=== PATIENT | female | born 1980 | race American Indian/Alaskan Native ===

== ENCOUNTER 2021-09-16 12:14 | Emergency (ER) | payer MEDICAID, OTHER ==
[2021-09-16 12:29] VITALS: BP 154/108
[2021-09-16] MEDS ORDERED: CYCLOBENZAPRINE 10 MG TAB PO ONE (12:32)
[2021-09-16] MEDS ORDERED: predniSONE 20 MG TAB PO ONE (12:32)
[2021-09-16] MEDS ORDERED: KETOROLAC 60 MG/2 ML INJ IM ONE (12:32)
--- NOTE | 2021-09-16 13:26 | Emergency Department Report ---
ED Back Pain/Injury HPI - General Chief Complaint: Back Pain/Injury Stated Complaint: BACK PAIN Time Seen by Provider: 09/16/21 12:28 Source: patient Limitations: No Limitations - History of Present Illness Initial Comments: This is a 40-year-old female nontoxic, well nourished in appearance, no acute signs of distress presents to the ED with c/o of lower back pain x several days. Patient stated that she was heavy lifting and developed this pain. Patient denies any radiation of pain. Patient denies any injuries or trauma. Denies any bladder or bowel instability. Patient denies any urinary symptoms. Denies any fever, chills, nausea, vomiting, headache, stiff neck, chest pain or shortness of breath. Patient denies any numbness or tingling. Denies any allergies. Denies significant past medical history. MD Complaint: back pain -: days(s) Similar Symptoms Previously: Yes Place: home Radiation: none Severity: mild Severity scale (0 -10): 3 Quality: aching Consistency: intermittent Improves With: immobilization, sitting upright Worsens With: movement, walking Context: while lifting, turning/twisting Associated Symptoms: denies other symptoms. denies: confusion, weakness, chest pain, numbness, difficulty walking, cough, difficulty urinating, diaphoresis, incontinence, fever/chills, constipation, headaches, abdominal pain, loss of a ppetite, malaise, nausea/vomiting, rash, seizure, shortness of breath, syncope - Related Data Home Medications Medication Instructions Recorded Confirmed Last Taken Verapamil HCl [Verapamil ER PM] 180 mg PO DAILY 01/17/15 06/26/16 01/18/15 09:00 Imitrex tab PO QID PRN 06/26/16 Unknown Previous Rx's Medication Instructions Recorded Last Taken Type Cyclobenzaprine [Flexeril] 10 mg PO QHS PRN #10 tablet 09/16/21 Unknown Rx Naproxen 500 mg PO Q12H PRN #12 tablet 09/16/21 Unknown Rx Allergies Allergy/AdvReac Type Severity Reaction Status Date / Time No Known Allergies Allergy Unverified 01/17/15 15:18 ED Review of Systems ROS: Stated complaint: BACK PAIN Other details as noted in HPI Comment: All other systems reviewed and negative Constitutional: denies: chills, fever Eyes: denies: eye pain, eye discharge, vision change ENT: denies: ear pain, throat pain Respiratory: denies: cough, shortness of breath, wheezing Cardiovascular: denies: chest pain, palpitations Endocrine: no symptoms reported Gastrointestinal: denies: abdominal pain, nausea, diarrhea Genitourinary: denies: urgency, dysuria, discharge Musculoskeletal: back pain. denies: joint swelling, arthralgia Skin: denies: rash, lesions Neurological: denies: headache, weakness, paresthesias Psychiatric: denies: anxiety, depression Hematological/Lymphatic: denies: easy bleeding, easy bruising ED Past Medical Hx - Past Medical History Previous Medical History?: Yes Hx Hypertension: Yes (Takes Verapamil for headaches) Hx Headaches / Migraines: Yes (CLUSTER) Hx Asthma: No Hx COPD: No - Surgical History Past Surgical History?: Yes Additional Surgical History: leep - Social History Smoking Status: Current Every Day Smoker Substance Use Type: None - Medications Home Medications: Home Medications Medication Instructions Recorded Confirmed Last Taken Type Verapamil HCl [Verapamil ER PM] 180 mg PO DAILY 01/17/15 06/26/16 01/18/15 09:00 History Imitrex tab PO QID PRN 06/26/16 Unknown History Cyclobenzaprine [Flexeril] 10 mg PO QHS PRN #10 tablet 09/16/21 Unknown Rx Naproxen 500 mg PO Q12H PRN #12 tablet 09/16/21 Unknown Rx ED Physical Exam - General Limitations: No Limitations General appearance: alert, in no apparent distress - Head Head exam: Present: atraumatic, normocephalic - Eye Eye exam: Present: normal appearance - Neck Neck exam: Present: normal inspection, full ROM. Absent: lymphadenopathy - Respiratory Respiratory exam: Absent: respiratory distress - Cardiovascular Cardiovascular Exam: Present: regular rate - GI/Abdominal GI/Abdominal exam: Present: soft, normal bowel sounds. Absent: distended, tenderness, guarding, rebound, rigid, diminished bowel sounds, mass, bruit, pulsatile mass - Extremities Exam Extremities exam: Present: normal inspection, full ROM. Absent: tenderness - Back Exam Back exam: Present: normal inspection, full ROM, paraspinal tenderness. Absent: tenderness, CVA tenderness (R), CVA tenderness (L), muscle spasm, vertebral tenderness, rash noted - Expanded Back Exam Expanded Back exam: Absent: saddle anesthesia Back exam: Negative Straight Leg Raising: Left, Right 1 - pain here - Neurological Exam Neurological exam: Present: alert, oriented X3, normal gait - Psychiatric Psychiatric exam: Present: normal affect, normal mood - Skin Skin exam: Present: warm, dry, intact, normal color. Absent: rash ED Course Vital Signs 09/16/21 09/16/21 12:25 13:41 Temperature 97.8 F Pulse Rate 98 H Respiratory 16 16 Rate Blood Pressure 154/108 [Left] O2 Sat by Pulse 98 Oximetry - Reevaluation(s) Reevaluation #1: 09/16/21 13:26 Patient is speaking in full sentences with no signs of distress noted. ED Medical Decision Making - Lab Data Lab Results 09/16/21 Range/Units 14:28 Urine Color Yellow (Yellow) Urine Turbidity Slightly-cloudy (Clear) Urine pH 5.0 (5.0-7.0) Ur Specific [place] 1.023 (1.003-1.030) Urine Protein 30 mg/dl (Negative) mg/dL Urine Glucose (UA) Neg (Negative) mg/dL Urine Ketones Neg (Negative) mg/dL Urine Blood Neg (Negative) Urine Nitrite Neg (Negative) Urine Bilirubin Neg (Negative) Urine Urobilinogen 2.0 (<2.0) mg/dL Ur Leukocyte Esterase Neg (Negative) Urine WBC (Auto) 3.0 (0.0-6.0) /HPF Urine RBC (Auto) 4.0 (0.0-6.0) /HPF U Epithel Cells (Auto) 3.0 (0-13.0) /HPF Urine Bacteria (Auto) 2+ (Negative) /HPF Urine Mucus 3+ /HPF Urine HCG, Qual Negative (Negative) - Medical Decision Making This is a 40-year-old female that presents with low back strain. Patient is stable was examined by me. There is no spinal tenderness. There is no cauda equina syndrome during examination. No bladder or bowel instability. Patient received Toradol 60 mg IM, flexeril and prednisone in the ED which stated that his symptoms has resolved and subsided. Patient stated family member will drive patient home after discharge due to possible drowsiness of Flexeril. Patient is notified of the UA results with no questions noted by the patient. Patient is discharged with muscle relaxant and Motrin. Patient was instructed not to operate any machinery while taking muscle relaxant as they cause her drowsiness. Patient was referred to Follow-up with a primary care doctor in 3-5 days or if symptoms worsen and continue return to emergency room as soon as possible. At time of discharge, the patient does not seem toxic or ill in appearance. No acu te signs of distress noted. Patient agrees to discharge treatment plan of care. No further questions noted by the patient. Critical care attestation.: If time is entered above; I have spent that time in minutes in the direct care of this critically ill patient, excluding procedure time. ED Disposition Clinical Impression: Low back strain Qualifiers: Encounter type: initial encounter Qualified Code(s): S39.012A - Strain of muscle, fascia and tendon of lower back, initial encounter Disposition: HOME / SELF CARE / HOMELESS Is pt being admited?: No Does the pt Need Aspirin: No Condition: Stable Instructions: Lumbosacral Strain, Cyclobenzaprine tablets Additional Instructions: Follow-up with your primary care doctor in 3-5 days or if symptoms worsen such as bladder or bowel stability, chest pain, short of breath, numbness or tingling sensation in extremities, headache, dizziness, visual changes, nausea vomiting, or abdominal pain, return back to emergency room as was possible. Take naproxen and Flexeril as prescribed. Do not operate heavy machinery while taking Flexeril due to sedation Prescriptions: Cyclobenzaprine [Flexeril] 10 mg PO QHS PRN #10 tablet PRN Reason: Muscle Spasm Naproxen 500 mg PO Q12H PRN #12 tablet PRN Reason: Pain , Severe (7-10) Referrals: PRIMARY CAREMD [Referring] - 3-5 Days DALJIT OLIVAREZ MD [Staff Physician] - 3-5 Days Forms: Work/School Release Form(ED) Time of Disposition: 15:33
[2021-09-16 15:18] LABS: Bacteria,Urine 2+ /HPF (Negative); Bilirubin,Urine NEG (Negative); Blood,Urine NEG (Negative); Color,Urine Yellow (Yellow); Mucus,Urine 3+ /HPF
[2021-09-16 15:20] LABS: HCG Qualitative,Urine Negative (Negative)
== END 2021-09-16 15:47 | disposition home or self-care (01) ==
LOC: ED 12:14
DX: S39.012A Strain of muscle, fascia and tendon of lower back, initial encounter (principal); I10 Essential (primary) hypertension; F17.200 Nicotine dependence, unspecified, uncomplicated; X58.XXXA Exposure to other specified factors, initial encounter; Y93.89 Activity, other specified; Y92.89 Other specified places as the place of occurrence of the external cause; Y99.8 Other external cause status
CPT/HCPCS: 81001; 81025; 96372; 99283; J1885; J7512

== ENCOUNTER 2021-09-18 20:24 | Emergency (ER) | payer OTHER ==
--- NOTE | 2021-09-18 20:45 | Emergency Department Report ---
ED Abdominal Pain HPI - General Chief Complaint: Abdominal Pain Stated Complaint: LOWER AB PAIN Time Seen by Provider: 09/18/21 20:41 Source: patient Mode of arrival: Ambulatory Limitations: No Limitations - History of Present Illness MD Complaint: abdominal pain -: Gradual, week(s) (2-3) Location: LLQ, RLQ, suprapubic Radiation: none, suprapubic Migration to: suprapubic Severity: mild, moderate Quality: aching, dull Consistency: constant Improves With: nothing Worsens With: movement Associated Symptoms: other (was previously associated wtih lower back pain which has resolved with the medication proveded for the back a couple days ago. ). denies: vomiting, diarrhea, constipation, dysuria, hematemesis, hematuria, anorexia, syncope - Related Data LMP (females 10-50): unknown Home Medications Medication Instructions Recorded Confirmed Last Taken Verapamil HCl [Verapamil ER PM] 180 mg PO DAILY 01/17/15 06/26/16 01/18/15 09:00 Imitrex tab PO QID PRN 06/26/16 Unknown Previous Rx's Medication Instructions Recorded Last Taken Type Cyclobenzaprine [Flexeril] 10 mg PO QHS PRN #10 tablet 09/16/21 Unknown Rx Naproxen 500 mg PO Q12H PRN #12 tablet 09/16/21 Unknown Rx Hyoscyamine Subl [Levsin Sl 0.125 0.125 mg SL Q6HR PRN #20 tab 09/18/21 Unknown Rx TAB] Allergies Allergy/AdvReac Type Severity Reaction Status Date / Time No Known Allergies Allergy Unverified 01/17/15 15:18 ED Review of Systems ROS: Stated complaint: LOWER AB PAIN Other details as noted in HPI Comment: All other systems reviewed and negative ED Past Medical Hx - Past Medical History Hx Hypertension: Yes (Takes Verapamil for headaches) Hx Headaches / Migraines: Yes (CLUSTER) Hx Asthma: No Hx COPD: No - Surgical History Additional Surgical History: leep - Social History Smoking Status: Current Every Day Smoker Substance Use Type: None - Medications Home Medications: Home Medications Medication Instructions Recorded Confirmed Last Taken Type Verapamil HCl [Verapamil ER PM] 180 mg PO DAILY 01/17/15 06/26/16 01/18/15 09:00 History Imitrex tab PO QID PRN 06/26/16 Unknown History Cyclobenzaprine [Flexeril] 10 mg PO QHS PRN #10 tablet 09/16/21 Unknown Rx Naproxen 500 mg PO Q12H PRN #12 tablet 09/16/21 Unknown Rx Hyoscyamine Subl [Levsin Sl 0.125 0.125 mg SL Q6HR PRN #20 tab 09/18/21 Unknown Rx TAB] ED Physical Exam - General Limitations: No Limitations General appearance: alert, in no apparent distress - Head Head exam: Present: atraumatic, normocephalic - Eye Eye exam: Present: normal appearance, PERRL, EOMI Pupils: Present: normal accommodation - ENT ENT exam: Present: normal exam, normal orophraynx, mucous membranes moist, TM's normal bilaterally - Neck Neck exam: Present: normal inspection, full ROM - Respiratory Respiratory exam: Present: normal lung sounds bilaterally. Absent: respiratory distress, wheezes, rales, chest wall tenderness, accessory muscle use, decreased breath sounds - Cardiovascular Cardiovascular Exam: Present: regular rate, normal rhythm. Absent: systolic murmur, diastolic murmur, rubs, gallop - GI/Abdominal GI/Abdominal exam: Present: soft, tenderness, normal bowel sounds. Absent: guarding, rebound - Extremities Exam Extremities exam: Present: normal inspection, normal capillary refill - Back Exam Back exam: Present: normal inspection. Absent: CVA tenderness (R), CVA tenderness (L) - Neurological Exam Neurological exam: Present: alert, oriented X3, CN II-XII intact, normal gait - Psychiatric Psychiatric exam: Present: normal affect, normal mood. Absent: anxious, flat affect, homicidal ideation - Skin Skin exam: Present: warm, dry, intact, normal color. Absent: rash, cyanosis, diaphoretic ED Course Vital Signs 09/18/21 09/18/21 09/18/21 20:39 21:23 23:38 Temperature 97.9 F 98.5 F Pulse Rate 86 71 83 Respiratory 18 12 17 Rate Blood Pressure 155/99 Blood Pressure 127/77 [Right] O2 Sat by Pulse 100 99 97 Oximetry ED Medical Decision Making - Lab Data Result diagrams: 09/18/21 20:56 09/18/21 20:56 Critical care attestation.: If time is entered above; I have spent that time in minutes in the direct care of this critically ill patient, excluding procedure time. ED Disposition Clinical Impression: Abdominal pain Disposition: HOME / SELF CARE / HOMELESS Is pt being admited?: No Does the pt Need Aspirin: No Condition: Stable Instructions: Abdominal Pain, Adult, [id number], Abdominal Pain (ED) Additional Instructions: You have been evaluated emergency department today for abdominal pain. Your evaluation did not show evidence of any medical conditions requiring emergent intervention at this time. Your lipase was it was elevated but not to a significant degree significant pancreatitis does not appear to be present at this time please drink plenty of fluids. Please schedule an appointment with your primary care physician. Return to emergency department if you experience worsening uncontrolled pain, fevers of 100.4 or greater, recurrent vomiting, inability to tolerate food or fluids by mouth, bloody stools or vomit, black tarry stools, or any other concerning symptoms. Prescriptions: Hyoscyamine Subl [Levsin Sl 0.125 TAB] 0.125 mg SL Q6HR PRN #20 tab PRN Reason: abdominal pain Referrals: [facility] [Provider Group] - 3-5 Days
[2021-09-18 21:02] LABS: Bacteria,Urine 1+ /HPF (Negative); Bilirubin,Urine NEG (Negative); Blood,Urine MOD (Negative); Color,Urine Yellow (Yellow); Mucus,Urine 1+ /HPF; Protein,Urine <15 mg/dL mg/dL (Negative)
[2021-09-18 21:14] LABS: Basophils % (Auto) 0.8 % (0.0-1.8); Eosinophils # (Auto) 0.1 K/mm3 (0.0-0.4); Eosinophils % (Auto) 1.2 % (0.0-4.3); Hematocrit 37.6 % (30.3-42.9); Hemoglobin 12.3 gm/dl (10.1-14.3); Lymphocytes # (Auto) 1.7 K/mm3 (1.2-5.4); Lymphocytes % (Auto) 29.6 % (13.4-35.0); Mean Corpuscular HGB Conc 33 % (30-34); Mean Corpuscular Volume 92 fl (79-97); Monocytes # (Auto) 0.4 K/mm3 (0.0-0.8); Monocytes % (Auto) 7.2 % (0.0-7.3); Platelet Count 229 K/mm3 (140-440); Red Blood Count 4.09 M/mm3 (3.65-5.03); Red Cell Distribution Width 13.9 % (13.2-15.2)
[2021-09-18 21:25] VITALS: BP 127/77
[2021-09-18 21:30] LABS: Alanine Aminotransferase 20 units/L (7-56); Albumin 4.1 g/dL (3.9-5); BUN/Creatinine Ratio 13; Bilirubin,Direct < 0.2 mg/dL (0-0.2); Blood Urea Nitrogen 10 mg/dL (7-17); Calcium 8.8 mg/dL (8.4-10.2); Hemolysis Index 9
[2021-09-18] MEDS ORDERED: oxyCODONE /ACETAMINOPHEN 5-325MG TAB PO ONE (23:29)
[2021-09-18] MEDS ORDERED: ACETAMINOPHEN 325 MG TAB PO ONE (23:32)
== END 2021-09-18 23:38 | disposition home or self-care (01) ==
LOC: ED 20:24
DX: R10.9 Unspecified abdominal pain (principal); F17.200 Nicotine dependence, unspecified, uncomplicated
CPT/HCPCS: 36415; 80048; 80076; 81001; 83690; 84703; 85025; 99283

== ENCOUNTER 2021-12-13 21:45 | Emergency (ER) | payer OTHER ==
[2021-12-14 01:18] VITALS: BP 146/80
[2021-12-14 02:46] LABS: Bacteria,Urine 1+ /HPF (Negative); Bilirubin,Urine NEG (Negative); Blood,Urine NEG (Negative); Color,Urine Yellow (Yellow); Mucus,Urine 1+ /HPF
[2021-12-14 02:47] LABS: HCG Qualitative,Urine Negative (Negative)
[2021-12-14 03:41] LABS: Alanine Aminotransferase 20 units/L (7-56); Albumin 4.1 g/dL (3.9-5); BUN/Creatinine Ratio 15; Bilirubin,Direct < 0.2 mg/dL (0-0.2); Blood Urea Nitrogen 9 mg/dL (7-17); Calcium 8.5 mg/dL (8.4-10.2); Hemolysis Index 1
[2021-12-14 03:42] LABS: Basophils % (Auto) 0.6 % (0.0-1.8); Eosinophils # (Auto) 0.1 K/mm3 (0.0-0.4); Eosinophils % (Auto) 2.1 % (0.0-4.3); Hematocrit 34.2 % (30.3-42.9); Hemoglobin 11.4 gm/dl (10.1-14.3); Lymphocytes # (Auto) 1.5 K/mm3 (1.2-5.4); Lymphocytes % (Auto) 33.8 % (13.4-35.0); Mean Corpuscular HGB Conc 33 % (30-34); Mean Corpuscular Volume 90 fl (79-97); Monocytes # (Auto) 0.5 K/mm3 (0.0-0.8); Monocytes % (Auto) 11.4 % (0.0-7.3); Platelet Count 207 K/mm3 (140-440); Red Cell Distribution Width 14.4 % (13.2-15.2)
--- NOTE | 2021-12-14 05:36 | Cat Scan Report ---
CT ABDOMEN AND PELVIS WITH CONTRAST INDICATION / CLINICAL INFORMATION: Abdominal Pain. TECHNIQUE: Axial CT images were obtained through the abdomen and pelvis after 100 mL Omnipaque [address] scans at this location are performed using CT dose reduction for ALARA by means of automated exposure control. COMPARISON: CT dated 05/15/13 FINDINGS: LOWER CHEST: No significant abnormality. LIVER: No significant abnormality. GALLBLADDER: At least 2 mildly calcified gallstones with mild gallbladder wall edema but no acute inf lammation. Gallstones are slightly larger than on the prior study. BILE DUCTS: No significant abnormality. PANCREAS: No significant abnormality. SPLEEN: No significant abnormality. ADRENALS: Left adrenal adenoma is slightly larger but still has benign appearance. RIGHT KIDNEY / URETER: No significant abnormality. LEFT KIDNEY / URETER: No significant abnormality. STOMACH / SMALL BOWEL: No significant abnormality. COLON: No significant abnormality. APPENDIX: No significant abnormality. PERITONEUM: Trace free fluid in the cul-de-sac. No free air. No fluid collection. LYMPH NODES: No significant adenopathy. AORTA / ARTERIES: No significant abnormality. IVC / VEINS: No significant abnormality. URINARY BLADDER: No significant abnormality. REPRODUCTIVE ORGANS: No significant abnormality. ADDITIONAL FINDINGS: None. SKELETAL SYSTEM: No significant abnormality. IMPRESSION: 1. Cholelithiasis without definite CT evidence for acute cholecystitis. 2. No inflammatory process or bowel obstruction. 3. Benign left adrenal adenoma. Signer Name: Ratna Blair MD Signed: 12/14/2021 5:32 AM Workstation Name: [id number]
--- NOTE | 2021-12-14 06:42 | Emergency Department Report ---
ED Abdominal Pain HPI - General Chief Complaint: Abdominal Pain Stated Complaint: Lower stomach/back pain Time Seen by Provider: 12/14/21 02:27 Source: patient Mode of arrival: Ambulatory Limitations: No Limitations - History of Present Illness Initial Comments: 40-year-old Welsh female with asthma department complaining of having abdominal pain off and on since the month of August but it has progressively worsening over the last few days associated with crampy pain and occasional nausea. No hemoptysis no hematemesis hematochezia, no chest pain, palpitations, no abdominal trauma MD Complaint: abdominal pain -: Gradual Location: diffuse Radiation: none Migration to: no migration Severity: mild, moderate Quality: aching, dull Consistency: constant Improves With: nothing Worsens With: nothing - Related Data Home Medications Medication Instructions Recorded Confirmed Last Taken Verapamil HCl [Verapamil ER PM] 180 mg PO DAILY 01/17/15 06/26/16 01/18/15 09:00 Imitrex tab PO QID PRN 06/26/16 Unknown Previous Rx's Medication Instructions Recorded Last Taken Type Cyclobenzaprine [Flexeril] 10 mg PO QHS PRN #10 tablet 09/16/21 Unknown Rx Naproxen 500 mg PO Q12H PRN #12 tablet 09/16/21 Unknown Rx Hyoscyamine Subl [Levsin Sl 0.125 0.125 mg SL Q6HR PRN #20 tab 09/18/21 Unknown Rx TAB] Hyoscyamine Subl [Levsin Sl 0.125 0.125 mg SL Q6HR PRN #20 tab 12/14/21 Unknown Rx TAB] Allergies Allergy/AdvReac Type Severity Reaction Status Date / Time No Known Allergies Allergy Unverified 01/17/15 15:18 ED Review of Systems ROS: Stated complaint: Lower stomach/back pain Other details as noted in HPI Comment: All other systems reviewed and negative ED Past Medical Hx - Past Medical History Hx Hypertension: Yes (Takes Verapamil for headaches) Hx Headaches / Migraines: Yes (CLUSTER) Hx Asthma: No Hx COPD: No - Surgical History Past Surgical History?: Yes Additional Surgical History: leep - Social History Smoking Status: Current Every Day Smoker Substance Use Type: None - Medications Home Medications: Home Medications Medication Instructions Recorded Confirmed Last Taken Type Verapamil HCl [Verapamil ER PM] 180 mg PO DAILY 01/17/15 06/26/16 01/18/15 09:00 History Imitrex tab PO QID PRN 06/26/16 Unknown History Cyclobenzaprine [Flexeril] 10 mg PO QHS PRN #10 tablet 09/16/21 Unknown Rx Naproxen 500 mg PO Q12H PRN #12 tablet 09/16/21 Unknown Rx Hyoscyamine Subl [Levsin Sl 0.125 0.125 mg SL Q6HR PRN #20 tab 09/18/21 Unknown Rx TAB] Hyoscyamine Subl [Levsin Sl 0.125 0.125 mg SL Q6HR PRN #20 tab 12/14/21 Unknown Rx TAB] ED Physical Exam - General Limitations: No Limitations General appearance: alert, in no apparent distress - Head Head exam: Present: atraumatic, normocephalic - Eye Eye exam: Present: normal appearance - ENT ENT exam: Present: mucous membranes moist - Neck Neck exam: Present: normal inspection - Respiratory Respiratory exam: Present: normal lung sounds bilaterally. Absent: respiratory distress - Cardiovascular Cardiovascular Exam: Present: regular rate, normal rhythm. Absent: systolic murmur, diastolic murmur, rubs, gallop - GI/Abdominal GI/Abdominal exam: Present: soft, tenderness (Tenderness to the epigastric region and across the upper quadrant and down from the mid area region region as well no CVA tenderness noted. No rebound, no Rovsing, no Rodriguez Son, no Yinka sign, no Barreto sign no Rodriguez's), normal bowel sounds - Extremities Exam Extremities exam: Present: normal inspection - Back Exam Back exam: Present: normal inspection - Neurological Exam Neurological exam: Present: alert, oriented X3 - Psychiatric Psychiatric exam: Present: normal affect, normal mood - Skin Skin exam: Present: warm, dry, intact, normal color. Absent: rash ED Course Vital Signs 12/14/21 01:14 Temperature 98.5 F Pulse Rate 66 Respiratory 18 Rate Blood Pressure 146/80 [Right] O2 Sat by Pulse 100 Oximetry ED Medical Decision Making - Lab Data Result diagrams: 12/14/21 02:54 12/14/21 02:54 - Radiology Data Radiology results: report reviewed [facility] [address] [place] [address] Cat Scan Report Signed Patient: JOSE ALEJANDRE MR#: [id number] : 1980 Acct:[id number] Age/Sex: 40 / F ADM Date: 12/13/21 Loc: ED Attending Dr: Ordering Physician: CONSUELO FOLEY Date of Service: 12/14/21 Procedure(s): CT abdomen pelvis w con Accession Number(s): [id number] cc: CONSUELO FOLEY CT ABDOMEN AND PELVIS WITH CONTRAST INDICATION / CLINICAL INFORMATION: Abdominal Pain. TECHNIQUE: Axial CT images were obtained through the abdomen and pelvis after 100 mL Omnipaque [address] scans at this location are performed using CT dose reduction for ALARA by means of automated exposure control. COMPARISON: CT dated 05/15/13 FINDINGS: LOWER CHEST: No significant abnormality. LIVER: No significant abnormality. GALLBLADDER: At least 2 mildly calcified gallstones with mild gallbladder wall edema but no acute inflammation. Gallstones are slightly larger than on the prior study. BILE DUCTS: No significant abnormality. PANCREAS: No significant abnormality. SPLEEN: No significant abnormality. ADRENALS: Left adrenal adenoma is slightly larger but still has benign appearance. RIGHT KIDNEY / URETER: No significant abnormality. LEFT KIDNEY / URETER: No significant abnormality. STOMACH / SMALL BOWEL: No significant abnormality. COLON: No significant abnormality. APPENDIX: No significant abnormality. PERITONEUM: Trace free fluid in the cul-de-sac. No free air. No fluid collection. LYMPH NODES: No significant adenopathy. AORTA / ARTERIES: No significant abnormality. IVC / VEINS: No significant abnormality. URINARY BLADDER: No significant abnormality. REPRODUCTIVE ORGANS: No significant abnormality. ADDITIONAL FINDINGS: None. SKELETAL SYSTEM: No significant abnormality. IMPRESSION: 1. Cholelithiasis without definite CT evidence for acute cholecystitis. 2. No inflammatory process or bowel obstruction. 3. Benign left adrenal adenoma. Signer Name: Ratna Blair MD Signed: 12/14/2021 5:32 AM Workstation Name: [id number] Transcribed By: DT Dictated By: Mc Blair MD Electronically Authenticated By: Mc Blair MD Signed Date/Time: 12/14/21531 DD/ 7 TD/TT: - Medical Decision Making this patient presents with abdominal pain of unclear etiology. Their evaluation has not identified a emergent etiology for the abdominal pain. Specifically, given the very benign exam, normal laboratory studies, and lack of significant risk factors, I have a very low suspicion for appendicitis, ischemic bowel, bowel perforation, or any other life threatening disease. I have discussed with the patient the level of uncertainty with undifferentiated abdominal pain and clearly explained the need to follow-up as noted on the discharge instructions, or return to the Emergency Department immediately if the pain worsens, develops fever, persistent and uncontrollable vomiting, or for any new symptoms or concerns. I discussed with the patient that this presentation today for abdominal pain could represent a significant risk for an acute abdominal process. Although the tests in the ED were essentially normal, there is still a possibility of a process such as appendicitis, diverticulitis, cholecystitis, ulcer, early bowel obstruction, mesenteric ischemia, kidney stone, or even kidney infection which could subsequently cause disability or . The patient understands that they must return within 24 hours for a recheck or see their physician within 24 hours for re-exam due to the possibility of significant surgical or medical process. Critical care attestation.: If time is entered above; I have spent that time in minutes in the direct care of this critically ill patient, excluding procedure time. ED Disposition Clinical Impression: Abdominal pain, Gall stone Disposition: 01 HOME / SELF CARE / HOMELESS Is pt being admited?: No Does the pt Need Aspirin: No Condition: Stable Instructions: Abdominal Pain (ED), Cholelithiasis, Flank Pain, Adult, Easy-to- Read, Abdominal Pain, Adult, [id number] Prescriptions: Hyoscyamine Subl [Levsin Sl 0.125 TAB] 0.125 mg SL Q6HR PRN #20 tab PRN Reason: abdominal Referrals: KEVIN VALENZUELA III, MOTHER BABY RN-BC [Primary Care Provider] - 3-5 Days
== END 2021-12-14 06:53 | disposition home or self-care (01) ==
LOC: ED 21:45
DX: K80.80 Other cholelithiasis without obstruction (principal); R10.9 Unspecified abdominal pain; I10 Essential (primary) hypertension; F17.200 Nicotine dependence, unspecified, uncomplicated
CPT/HCPCS: 36415; 74177; 80048; 80076; 81001; 81025; 83690; 84703; 85025; 99284; Q9967

== ENCOUNTER 2022-03-28 21:23 | Emergency (ER) | payer OTHER ==
[2022-03-28 21:28] VITALS: BP 158/106
== END 2022-03-29 10:00 | disposition left against medical advice (07) ==
LOC: ED 21:23
DX: M54.9 Dorsalgia, unspecified (principal); Z53.21 Procedure and treatment not carried out due to patient leaving prior to being seen by health care provider

== ENCOUNTER 2022-05-07 09:31 | Emergency (ER) | payer OTHER ==
[2022-05-07] MEDS ORDERED: dexAMETHasone 20 MG/5 ML VIAL IM ONE (12:17)
[2022-05-07] MEDS ORDERED: KETOROLAC 30 MG/1 ML INJ IM ONE (12:17)
--- NOTE | 2022-05-07 12:17 | Emergency Department Report ---
ED Back Pain/Injury HPI - General Chief Complaint: Back Pain/Injury Stated Complaint: LOW BACK PAIN Time Seen by Provider: 05/07/22 11:28 Source: EMS Limitations: No Limitations - History of Present Illness Initial Comments: This is a 41-year-old female presents to ED complaining of lower back pain x2 to 3 months. Patient states that pain is intermittent and localized to her b ilateral lower back but has become more constant in the past few weeks. Patient describes pain as a burning, aching sensation to her lower back. Patient states that pain is worse with movement standing and sitting. Patient denies any fever, abdominal pain, chills, nausea vomiting, incontinence or difficulty using the bathroom. She denies any injury, trauma or falls. She denies any radiation of the pain elsewhere. She denies any urinary symptoms. MD Complaint: back pain Similar Symptoms Previously: Yes Improves With: supine Worsens With: movement, walking - Related Data Home Medications Medication Instructions Recorded Confirmed Last Taken Verapamil HCl [Verapamil ER PM] 180 mg PO DAILY 01/17/15 06/26/16 01/18/15 09:00 Imitrex tab PO QID PRN 06/26/16 Unknown Previous Rx's Medication Instructions Recorded Last Taken Type Naproxen 500 mg PO Q12H PRN #12 tablet 09/16/21 Unknown Rx Hyoscyamine Subl [Levsin Sl 0.125 0.125 mg SL Q6HR PRN #20 tab 09/18/21 Unknown Rx TAB] Hyoscyamine Subl [Levsin Sl 0.125 0.125 mg SL Q6HR PRN #20 tab 12/14/21 Unknown Rx TAB] Cyclobenzaprine [Flexeril 10 MG 10 mg PO QHS PRN #10 tablet 05/07/22 Unknown Rx TAB] Diclofenac Dr [Willy Rincon] 75 mg PO BID #30 tablet 05/07/22 Unknown Rx Allergies Allergy/AdvReac Type Severity Reaction Status Date / Time No Known Allergies Allergy Unverified 01/17/15 15:18 ED Review of Systems ROS: Stated complaint: LOW BACK PAIN Other details as noted in HPI Comment: All other systems reviewed and negative ED Back Pain Physical Exam - Exam General: Vital signs noted. No distress. Alert and acting appropriately. Back/Abdomen: No Abdominal Tenderness, No Perithoracic Tenderness, No Perilumbar Tenderness, No Sacroiliac Tenderness, No Flank Tenderness, No Straight Leg Raise Pain (Paraspinal tenderness to palpation. No cervical, thoracolumbar spinal tenderness) Neuro: Yes Normal Sensation, Yes Normal DTR's, Yes Normal Gait, No Motor Weakness ED Course Vital Signs 05/07/22 10:31 Temperature 98.4 F Pulse Rate 63 Respiratory 18 Rate Blood Pressure 125/83 O2 Sat by Pulse 99 Oximetry ED Medical Decision Making - Radiology Data Radiology results: report reviewed, image reviewed CHEST 2 VIEWS INDICATION / CLINICAL INFORMATION: CHEST PAIN. COMPARISON: 08/06/2019 FINDINGS: SUPPORT DEVICES: None. HEART / MEDIASTINUM: No significant abnormality. LUNGS / PLEURA: No significant pulmonary or pleural abnormality. No pneumothora x. ADDITIONAL FINDINGS: No significant additional findings. IMPRESSION: 1. No acute findings. Signer Name: Alberto Emanuel MD Signed: 05/07/2022 12:20 PM Workstation Name: [email or web address] Transcribed By: COLTON Dictated By: Alberto Emanuel MD Electronically Authenticated By: Alberto Emanuel MD Signed Date/Time: 05/07/22 1220 - Medical Decision Making 41-year-old female presents to ED with low back lumbar radiculopathy ED course: Patient received Toradol and Decadron in ED. This is a chronic issue and not a new symptom. Therefore urinalysis and patient declined and patient does not x-ray because there was no injury sustained. Vital signs are normal patient is in no acute distress. Patient is ambulatory without any problems. Discussed with patient follow-up with primary care physician. Patient also understands to follow-up with an Ortho/neuro for management. Discussed the patient and take medications as prescribed. Patient has no neurological deficit. Patient is alert and oriented 3 and understands all instructions given. Discussed drowsiness effect of Flexeril makes her drowsy and not to operate machinery while taking flexeril Critical care attestation.: If time is entered above; I have spent that time in minutes in the direct care of this critically ill patient, excluding procedure time. ED Disposition Clinical Impression: Lumbar radiculopathy Disposition: HOME / SELF CARE / HOMELESS Is pt being admited?: No Does the pt Need Aspirin: No Condition: Stable Instructions: Radicular Pain, Neuropathic Pain Additional Instructions: Make sure to follow up with the primary care physician as discussed. Take all your medications as you've been prescribed. If you have any worsening symptoms or develop new symptoms please return to ED immediately. Prescriptions: Cyclobenzaprine [Flexeril 10 MG TAB] 10 mg PO QHS PRN #10 tablet PRN Reason: Muscle Spasm Diclofenac Dr [Voltaren Dr] 75 mg PO BID #30 tablet Referrals: CIRO ESPOSITO MD [Staff Physician] - 3-5 Days Forms: Work/School Release Form(ED) Time of Disposition: 13:09
[2022-05-07 13:24] VITALS: BP 140/80
== END 2022-05-07 13:24 | disposition home or self-care (01) ==
LOC: ED 09:31
DX: M54.16 Radiculopathy, lumbar region (principal)
CPT/HCPCS: 96372; 99282; J1100; J1885